=== PATIENT | female | born 1960 | race Caucasian/White ===

== ENCOUNTER → 2019-12-25 | Outpatient (CLI) | payer OTHER | END | disposition home or self-care (01) | LOC: RAD 15:00 | DX: J32.9 Chronic sinusitis, unspecified (principal) ==

== ENCOUNTER → 2021-02-07 | Outpatient (CLI) | payer OTHER | END | disposition home or self-care (01) | LOC: RAD 14:56 | PROVIDERS: ATTEND Family Medicine | DX: M47.26 Other spondylosis with radiculopathy, lumbar region (principal) ==

== ENCOUNTER → 2021-09-02 | Outpatient (CLI) | payer SELFPAY ==
[2021-09-02 10:17] LABS: ALBUMIN 3.4 gm/dl (3.1-4.5); TOTAL PROTEIN 7.4 gm/dL (6.4-8.2)
[2021-09-03 08:08] LABS: HEP B CORE AB, IGM Negative (Negative); HEPATITIS B SURFACE AG Negative (Negative); HEPATITIS C VIRUS ANTIBODY <0.1 s/co (0.0-0.9)
== END | disposition home or self-care (01) ==
LOC: LAB 09:39
PROVIDERS: ATTEND Family Medicine
DX: Z20.5 Contact with and (suspected) exposure to viral hepatitis (principal)

== ENCOUNTER → 2023-05-29 | Outpatient (CLI) | payer MEDICARE ==
[2023-05-29 08:12] LABS: BUN 12 mg/dl (9-23); CHLORIDE 104 mmol/L (98-107); CHOLESTEROL 189 mg/dL (<200); LDL CHOLESTEROL 116 mg/dL (9-159); POTASSIUM 3.8 mmol/L (3.4-5.1); TRIGLYCERIDES 90 mg/dl (<150)
== END | disposition home or self-care (01) ==
LOC: LAB 07:03
PROVIDERS: ATTEND Family Medicine
DX: Z13.1 Encounter for screening for diabetes mellitus (principal); Z13.220 Encounter for screening for lipoid disorders; I10 Essential (primary) hypertension